=== PATIENT | female | born 1950 ===

== ENCOUNTER 2017-12-25 16:27 | Emergency (ER) | payer MEDICARE, OTHER ==
[2017-12-25 16:27] VITALS: BMI 30.2
[2017-12-25 16:34] VITALS: TEMP 97.6; O2SAT 98
[2017-12-25] MEDS ORDERED: Sodium Chloride 0.9% 1,000 ML IV ONE (16:43)
[2017-12-25 17:05] LABS: BASO # 0.1 K/uL (0.0-0.2); BASO % 1.1 % (0.0-2.0); EOS # 0.1 K/uL (0.0-0.7); EOS % 1.4 % (0.0-4.0); HEMOGLOBIN 14.6 g/dL (11.0-16.0); LYMPH # 1.6 K/uL (1.0-4.3); LYMPH % 25.9 % (20.0-40.0); MEAN CELL VOLUME 90.3 fL (81.0-99.0); MEAN CORPUSCULAR HEMOGLOBIN 30.8 pg (27.0-31.0); MEAN CORPUSCULAR HGB CONC 34.2 g/dL (33.0-37.0); MEAN PLATELET VOLUME 7.9 fL (7.2-11.7); MONO # 0.4 K/uL (0.0-0.8); MONO % 6.7 % (0.0-10.0); NEUT % 64.9 % (50.0-75.0); RBC 4.72 Mil/uL (3.80-5.20); RED CELL DISTRIBUTION WIDTH 13.5 % (11.5-14.5); WHITE BLOOD COUNT 6.2 K/uL (4.8-10.8)
--- NOTE | 2017-12-25 17:06 | C.PDOC ---
History Of Present Illness Patient is a 67 y/o F presenting with 4 day history of worsening R flank pain. She denies fever, cough, shortness of breath, chest pain, hematuria or dysuria. She was seen in ED for similar symptoms before and had negative CT. Symptoms were thought secondary to chronic back pain. Time Seen by Provider: 12/25/17 16:40 Chief Complaint (Nursing): Back Pain Past Medical History Vital Signs: Last Vital Signs Temp 97.6 F 12/25/17 16:31 Pulse 90 12/25/17 17:46 Resp 16 12/25/17 17:46 BP 113/68 12/25/17 17:46 Pulse Ox 98 12/25/17 17:46 - Medical History PMH: Diabetes, Diverticulitis, Fractures (Hx of right knee replacement), Gall Bladder Disease (Gallstones), Hypercholesterolemia Denies: Chronic Kidney Disease Surgical History: Appendectomy, Cholecystectomy - [facility] Procedures CATARAC PHACOEMULS/ASPIR (07/21/03) INJECT/INFUSE NEC (03/01/06) INSERT LENS AT CATAR EXT (07/21/03) LAPAROSCOPIC CHOLECYSTECTOMY (01/27/14) Family History: States: Unknown Family Hx - Social History Hx Tobacco Use: Yes Hx Alcohol Use: Yes Hx Substance Use: No - Immunization History Hx Tetanus Toxoid Vaccination: No Hx Influenza Vaccination: No Hx Pneumococcal Vaccination: No Review Of Systems Constitutional: Negative for: Fever, Chills Cardiovascular: Negative for: Chest Pain, Palpitations, Orthopnea, Paroxysmal Noc. Dyspnea, Edema, Light Headedness Respiratory: Negative for: Cough, Shortness of Breath, SOB with Excertion, Wheezing Gastrointestinal: Positive for: Nausea, Abdominal Pain (R flank). Negative for : Vomiting, Diarrhea, Constipation Genitourinary: Negative for: Dysuria, Frequency, Incontinence, Hematuria, Vaginal Discharge, Vaginal Bleeding, Pelvic Pain Skin: Negative for: Rash Neurological: Negative for: Weakness, Numbness, Headache Physical Exam - Physical Exam Appears: Well, Non-toxic, No Acute Distress Skin: Normal Color, Warm, Dry Head: Atraumatic, Normacephalic Eye(s): bilateral: Normal Inspection, PERRL, EOMI Neck: Supple Chest: Symmetrical Cardiovascular: Rhythm Regular Respiratory: Normal Breath Sounds Gastrointestinal/Abdominal: Soft, Tenderness (R flank/paraspinal), No Distention Back: CVA Tenderness (Right CVA/paraspinal tenderness), No Vertebral Tenderness , Muscle Spasm Extremity: Normal ROM Neurological/Psych: Oriented x3 ED Course And Treatment - Laboratory Results Result Diagrams: 12/25/17 17:02 12/25/17 17:02 O2 Sat by Pulse Oximetry: 98 Medical Decision Making Medical Decision Making: Physical exam seems more consistent with muscle spasm as I can palpate spasm to R CVA/paraspinal area with associated tenderness. However, will get CT ro r/o renal stone. After CT scan patient reported chest pain to the tech. EKG shows NSR at 94bpm with normal intervals and no st changes. On my reevaluation after CT and ekg she reports pain has resovled. She reports intermittent sharp chest pain x months that "feels like gas." She reports that she had a normal stress 1 year ago. She reports that she has follow-up with her PMD on Friday. 5:42pm FINDINGS: LOWER THORAX: Right middle lobe, left lower lobe and lingula atelectasis/ scarring. Heart size normal. Coronary arterial and valvular calcifications. LIVER: Unremarkable. No gross lesion or ductal dilatation. GALLBLADDER AND BILE DUCTS: Prior cholecystectomy with surgical clips in place. PANCREAS: Unremarkable. No gross lesion or ductal dilatation. SPLEEN: Unremarkable. ADRENALS: Unremarkable. No mass. KIDNEYS AND URETERS: Unremarkable. No hydronephrosis. No solid mass. VASCULATURE: Unremarkable. No aortic aneurysm. BOWEL: Unremarkable. No obstruction. No gross mural thickening. APPENDIX: No findings to suggest acute appendicitis. PERITONEUM: Unremarkable. No free fluid. No free air. LYMPH NODES: Unremarkable. No enlarged lymph nodes. BLADDER: Unremarkable. REPRODUCTIVE: Unremarkable. BONES: No acute fracture. Stable L1 compression deformity. OTHER FINDINGS: None. IMPRESSION: No obstructive uropathy or evidence of recently passed genitourinary calculus. Additional stable findings as above. Patient made aware of CT findings. She was instructed on the importance of following up with PMD and pain mgmt. She reports that pain is resolved. She is ambulating around the ED without issue. She has no weakness, numbness or tingling. She has no bladder or bowel incontinence. Disposition - Disposition Disposition: HOME/ ROUTINE Disposition Time: 17:38 Condition: GOOD Additional Instructions: You need to follow-up with your PMD within 2 days. You need to be further evaluated for months long history of chest pain. You also need futher mgmt of chronic back pain Prescriptions: Naproxen 500 mg PO BID PRN #15 tab PRN Reason: Pain, Moderate (4-7) Instructions: Muscle Strain, Low Back Pain in Adults, Hyperglycemia, Adult Forms: [employer] ([place]) - Clinical Impression Clinical Impression: Hyperglycemia, Low back strain, Muscle spasm, Compression fracture
[2017-12-25 17:10] LABS: SQUAMOUS EPITHIAL 2 /hpf (0-5); URINE BILIRUBIN NEGATIVE (NEGATIVE); URINE BLOOD NEGATIVE (NEGATIVE); URINE CLARITY Clear (Clear); URINE COLOR Yellow (YELLOW); URINE GLUCOSE (UA) 3+ mg/dL (Normal); URINE LEUKOCYTE ESTERASE TRACE Leu/uL (Negative); URINE PROTEIN NEGATIVE (NEGATIVE); URINE UROBILINOGEN NORMAL mg/dL (0.2-1.0)
[2017-12-25 17:19] LABS: ALB/GLOB RATIO 1.6 (1.0-2.1); ALBUMIN 4.5 g/dL (3.5-5.0); CALCIUM 9.5 mg/dl (8.6-10.4); GFR AFRICAN-AMERICAN > 60; GFR NON-AFRICAN AMERICAN > 60
[2017-12-25 17:36] LABS: ALT/SGPT 35 U/L (9-52); AST/SGOT 33 U/L (14-36); BLOOD UREA NITROGEN 16 mg/dL (7-17)
--- NOTE | 2017-12-25 17:42 | CT ---
Date of service: 12/25/2017 PROCEDURE: CT Abdomen and Pelvis without intravenous contrast HISTORY: R flank pain COMPARISON: Correlations made to chest radiograph dated 10/08/2016; CT scan of the abdomen pelvis dated 07/11/2015. TECHNIQUE: Contiguous images were obtained from the domes of the diaphragms to the upper thighs without the administration of intravenous contrast. Oral contrast was not administered. Radiation dose: Total exam DLP = 1025.3 mGy-cm. This CT exam was performed using one or more of the following dose reduction techniques: Automated exposure control, adjustment of the mA and/or kV according to patient size, and/or use of iterative reconstruction technique. FINDINGS: LOWER THORAX: Right middle lobe, left lower lobe and lingula atelectasis/ scarring. Heart size normal. Coronary arterial and valvular calcifications. LIVER: Unremarkable. No gross lesion or ductal dilatation. GALLBLADDER AND BILE DUCTS: Prior cholecystectomy with surgical clips in place. PANCREAS: Unremarkable. No gross lesion or ductal dilatation. SPLEEN: Unremarkable. ADRENALS: Unremarkable. No mass. KIDNEYS AND URETERS: Unremarkable. No hydronephrosis. No solid mass. VASCULATURE: Unremarkable. No aortic aneurysm. BOWEL: Unremarkable. No obstruction. No gross mural thickening. APPENDIX: No findings to suggest acute appendicitis. PERITONEUM: Unremarkable. No free fluid. No free air. LYMPH NODES: Unremarkable. No enlarged lymph nodes. BLADDER: Unremarkable. REPRODUCTIVE: Unremarkable. BONES: No acute fracture. Stable L1 compression deformity. OTHER FINDINGS: None. IMPRESSION: No obstructive uropathy or evidence of recently passed genitourinary calculus. Additional stable findings as above.
[2017-12-25 17:47] VITALS: BP 113/68; PULSE 90; RESP 16
== END 2017-12-25 17:54 | disposition home or self-care (01) ==
LOC: C.ER 16:27
DX: S39.012A Strain of muscle, fascia and tendon of lower back, initial encounter (principal); X58.XXXA Exposure to other specified factors, initial encounter; M62.838 Other muscle spasm; E11.65 Type 2 diabetes mellitus with hyperglycemia; M48.56XA Collapsed vertebra, not elsewhere classified, lumbar region, initial encounter for fracture
CPT/HCPCS: 74176; 80053; 81001; 83690; 85025; 96361; 96374; 99282; J1885; J7030